=== PATIENT | male | born 1985 | race Caucasian/White ===

== ENCOUNTER 2016-08-04 10:16 | Emergency (ER) | payer OTHER ==
--- NOTE | 2016-08-04 11:49 | EDPHY ---
H & P Stated Complaint: POSSIBLE ABSCESS TO R HIP X 1 WEEK Source: Patient Exam Limitations: No limitations - Personal History Current Tetanus/Diphtheria Vaccine: Yes Current Tetanus Diphtheria and Acellular Pertussis (TDAP): Yes - Medical/Surgical History Hx Asthma: No Hx Chronic Respiratory Disease: No Hx Diabetes: No Hx Cardiac Disease: No Hx Renal Disease: No Hx Cirrhosis: No Hx Alcoholism: No Hx HIV/AIDS: No Hx Splenectomy or Spleen Trauma: No Other PMH: PSH- R HIP ABSCESS DRAINAGE - Social History Smoking Status: Never smoked <Alison Leyva - Last Filed: 08/04/16 14:01> <Leighann Avelar - Last Filed: 08/04/16 14:19> Time Seen by Provider: 08/04/16 11:06 HPI/ROS: CHIEF COMPLAINT: rectal abscess HISTORY OF PRESENT ILLNESS: 31-year-old male presents emergency department complaining of rectal pain x1.5 weeks worsening in the last 3 days. Patient states he has had a perirectal abscess in the past that was drained in operating room 3 years ago. Patient reports pain has been increased over the last few days, worse with sitting down. He reports subjective chills and fevers , feeling fatigued and decreased appetite. Patient denies pain with bowel movement, no difficulty urinating. No drainage. REVIEW OF SYSTEMS: A comprehensive 10 point review of systems is otherwise negative aside from elements mentioned in the history of present illness. (Alison Leyva) - Physical Exam Exam: Physical Exam Gen: Alert and Oriented, NAD HEENT: PERRL, moist mucous membranes NECK: no meningismus CV: regular rate and regular rhythm PULM: CTAB, no wheezes ABDOMEN: soft, non tender to palpation, BS present : No scrotal erythema or tenderness, left gluteal perianal abscess, erythema , induration and tenderness to palpation, tenderness on digital exam inside anus on right side with induration BACK: No CVA tenderness NEURO: Neurologically grossly intact EXTREMITIES: normal appearing SKIN: no rash or break in skin on exposed skin PSYCH: answers questions appropriately. (Alison Leyva) Constitutional: Initial Vital Signs Temperature (C) 36.4 C 08/04/16 10:17 Heart Rate 81 08/04/16 10:17 Respiratory Rate 14 08/04/16 10:17 Blood Pressure 125/82 H 08/04/16 10:17 O2 Sat (%) 94 08/04/16 10:17 O2 Delivery Mode Room Air Allergies/Adverse Reactions: No Known Allergies Allergy (Unverified 08/04/16 10:18) Home Medications: Medication Instructions Recorded Hydrocodone/APAP 5/325 [[place] 1 tab PO Q4H PRN #7 tab 08/04/16 5/325] Medical Decision Making <Alison Leyva - Last Filed: 08/04/16 14:01> <Leighann Avelar - Last Filed: 08/04/16 14:19> ED Course/Re-evaluation: IV established, I-stat obtained. CT pelvis with IV contrast ordered to evaluate abscess. CT abdomen pelvis shows perianal abscess, not perirectal. I spoke with Gema Clemons who recommended I draining at bedside and she will see the patient in the office tomorrow at 4:00 p.m. I made a small incision attempted to drain the abscess, no purulent drainage and return, then asked for assistance supervising physician Dr. Avelar who performed an I and D, please see her procedure note. 1 5.0 Prolene suture placed in the incision that I placed. Patient was given 1 mg of Dilaudid prior to the procedure and during the procedure 100 mcg of fentanyl. He tolerated this well. He will be discharged with return precautions. (Alison Leyva) Differential Diagnosis: Diagnosis considered but not limited to perirectal abscess, perianal abscess, fourniers gangrene. (Alison Leyva) Other Provider: The patient was initially seen and evaluated by PA with the complaint of rectal pain. Please see their dictation for complete details. Additionally I obtained the following history: The patient has a history of perirectal abscess. The patient reports rectal pain for the past week that has progressively worsened. The PA asked me to help with the drainage of the abscess. I reviewed the database, medical/surgical history, and ED course. On my physical examination I found the following: Rectal: Perianal abscess. Procedure: Incision and Drainage abscess. The patient's abscess was located on the perianal region. Risks, benefits, alternatives discussed with the patient and consent obtained. The area was prepped and draped in sterile fashion. The patient received local anesthesia with 1% lidocaine with epinephrine. The abscess was incised with a #11 blade and purulent drainage was expressed. The wound was irrigated and packed. The patient tolerated the procedure well. The procedure was performed by myself and CHIP Royal. (Leighann Avelar) - Data Points Laboratory Results: 08/04/16 12:01 POC Hgb 17.0 gm/dL gm/dL (14.5-17.3) POC Hct 50 % % (42.8-50.6) POC Sodium 142 mEq/L mEq/L (134-144) POC Potassium 3.4 mEq/L mEq/L (3.3-5.0) POC Chloride 103 mEq/L mEq/L (96-108) POC BUN 15 mg/dL mg/dL (7-23) POC Creatinine 1.0 mg/dL mg/dL (0.8-1.5) POC Glucose 90 mg/dL mg/dL (70-100) Medications Given: Discontinued Medications Hydromorphone HCl (Dilaudid) 1 mg IVP EDNOW ONE Stop: 08/04/16 13:21 Last Admin: 08/04/16 13:20 Dose: 1 mg Sodium Chloride (Ns) 1,000 mls @ 0 mls/hr IV ONCE ONE PRN Reason: Wide Open Stop: 08/04/16 12:21 Last Admin: 08/04/16 12:30 Dose: 1,000 mls Ondansetron HCl (Zofran) 4 mg IVP EDNOW ONE Stop: 08/04/16 12:09 Last Admin: 08/04/16 12:09 Dose: 4 mg Point of Care Test Results: 08/04/16 12:01 POC Sodium 142 POC Potassium 3.4 POC Chloride 103 POC BUN 15 POC Creatinine 1.0 POC Glucose 90 Departure <Alison Leyva - Last Filed: 08/04/16 14:01> <Leighann Avelar - Last Filed: 08/04/16 14:19> - Departure Disposition: Home, Routine, Self-Care Clinical Impression: Perianal abscess Condition: Good Instructions: Anorectal Abscess and Anal Fistula (ED) Additional Instructions: Follow up with Dr. Gomez tomorrow at 4pm in her office. Take 600mg of ibuprofen every 8 hours with food for 3-5 days for pain, take [place] for severe pain. Return to the emergency department for worsening symptoms, new symptoms or concerns, fevers. Referrals: Gema Clemons MD [Medical Doctor] - As per Instructions (surgeon. ) Prescriptions: Hydrocodone/APAP 5/325 [[place] 5/325] 1 tab PO Q4H PRN #7 tab PRN Reason: Pain, Moderate Report Scribed for: Leighann Avelar Report Scribed by: Blaire Munoz Date of Report: 08/04/16 Time of Report: 13:41 <Leighann Avelar - Last Filed: 08/04/16 14:19>
[2016-08-04] MEDS ORDERED: IOPAMIDOL (ISOVUE-300) 100 ML BTL IV ONE (11:59)
[2016-08-04] MEDS ORDERED: ONDANSETRON 4 MG/2 ML VIAL ONE (12:03)
[2016-08-04] MEDS ORDERED: ONDANSETRON 4 MG/2 ML VIAL IVP ONE (12:08)
[2016-08-04] MEDS ORDERED: NS 1,000 ML IV ONE (12:20)
[2016-08-04] MEDS ORDERED: HYDROmorphONE/DILAUDID 1 MG/ML SYR ONE (13:14)
[2016-08-04] MEDS ORDERED: HYDROmorphONE/DILAUDID 1 MG/ML SYR IVP ONE (13:20)
[2016-08-04] MEDS ORDERED: fentaNYL 100 MCG/2 ML INJ ONE (13:39)
[2016-08-04 14:32] VITALS: BP 111/70; PULSE 85; RESP 16; TEMP 97.7; O2SAT 92
== END 2016-08-04 14:32 | disposition home or self-care (01) ==
PROC: 0D9QXZZ Drainage of Anus, External Approach (ICD-10-PCS; principal; 2016-08-04)
DX: K61.0 Anal abscess (principal)
CPT/HCPCS: 82947-QW; 96374; J1170; J2405; J3010; Q9967